=== PATIENT | male | born 1945 | race Caucasian/White ===

== ENCOUNTER 2017-07-11 09:54 | Inpatient (IN) | payer OTHER ==
[2017-07-11 10:34] LABS: AGAP ISTAT 18 mmol/L (6-14); BUN ISTAT 8 mg/dL (8-26); CHLORIDE ISTAT 104 mmol/L (98-110); CREATININE ISTAT 0.7 mg/dL (0.5-1.4); GLUCOSE ISTAT 124 mg/dL (70-99); HEMATOCRIT ISTAT 46 % (37-52); HEMOGLOBIN ISTAT 15.6 g/dL (14-18); POTASSIUM ISTAT 3.9 mmol/L (3.5-5.0); SODIUM ISTAT 140 mmol/L (135-145); TOT CO2 ISTAT 23 mmol/L (23-32)
[2017-07-11 10:36] LABS: ADD MAN DIFF? NO
[2017-07-11] MEDS: IV NORMAL SALINE 1000ML BAG 1,000 ML IV (10:41)
[2017-07-11] MEDS: fentaNYL PF VIAL 100 MCG/2 ML VIAL IV ×6 (10:42→16:51)
[2017-07-11 10:43] LABS: ANION GAP 10 (6-14); BASO % 0 % (0-3); BLOOD UREA NITROGEN 9 mg/dL (8-26); BUN/CREATININE RATIO 10 (6-20); CALCIUM 9.3 mg/dL (8.5-10.1); CARBON DIOXIDE 27 mmol/L (21-32); CHLORIDE 104 mmol/L (98-107); CREATININE 0.9 mg/dL (0.7-1.3); EOS # 0.1 x10^3/uL (0.0-0.7); EOS % 1 % (0-3); GFR 83.4; GLUCOSE 125 mg/dL (70-99); HEMATOCRIT 43.8 % (39.0-53.0); HEMOGLOBIN 14.9 g/dL (13.0-17.5); LYMPH # 1.8 x10^3/uL (1.0-4.8); LYMPH % 16 % (24-48); MEAN CORPUSCULAR HEMOGLOBIN 33 pg (25-35); MEAN CORPUSCULAR HGB CONC 34 g/dL (31-37); MEAN CORPUSCULAR VOLUME 98 fL (79-100); MONO % 9 % (0-9); NEUT # 7.9 x10^3uL (1.8-7.7); NEUT % 73 % (31-73); PLATELET COUNT 232 x10^3/uL (140-400); POTASSIUM 3.9 mmol/L (3.5-5.1); RED BLOOD COUNT 4.48 x10^6/uL (4.30-5.70); RED CELL DISTRIBUTION WIDTH 13.5 % (11.5-14.5); SODIUM 141 mmol/L (136-145); WHITE BLOOD COUNT 10.9 x10^3/uL (4.0-11.0)
[2017-07-11 10:49] LABS: ALBUMIN 3.5 g/dL (3.4-5.0); ALBUMIN/GLOBULIN RATIO 0.9 (1.0-1.7); ALK PHOS 60 U/L (46-116); ALT (SGPT) 33 U/L (16-63); AST (SGOT) 21 U/L (15-37); LIPASE 136 U/L (73-393); MAGNESIUM 1.7 mg/dL (1.8-2.4); TOTAL PROTEIN 7.6 g/dL (6.4-8.2)
[2017-07-11] MEDS ORDERED: CONTRAST GIVEN MC (11:15)
[2017-07-11] MEDS: IOHEXOL 300 MG/ML 100ML VIAL. IV (11:15)
[2017-07-11 11:20] LABS: BILIRUBIN,URINE NEGATIVE (NEG); CLARITY,URINE CLEAR; COLOR,URINE YELLOW; GLUCOSE,URINE NEGATIVE (NEG); NITRITE,URINE NEGATIVE (NEG); PROTEIN,URINE NEGATIVE (NEG-TRACE); UROBILINOGEN,URINE 0.2 mg/dL (0.2 mg/dL)
[2017-07-11 11:56] LABS: BACTERIA,URINE 0 /HPF (0-FEW); HYALINE CASTS, URINE OCCASIONAL /HPF; RBC,URINE 0 /HPF (0-2); SQUAMOUS EPITHELIAL CELL,UR FEW /LPF; WBC,URINE 0 /HPF (0-4)
[2017-07-11] MEDS ORDERED: MORPHINE SULFATE 4 MG/ML DISP.SYRIN. IV (12:00)
[2017-07-11] MEDS ORDERED: ONDANSETRON PF 4 MG/2 ML VIAL. IV (12:00)
[2017-07-11] MEDS ORDERED: PROCHLORPERAZINE 10 MG/2 ML VIAL. IV (12:45)
[2017-07-11] MEDS ORDERED: fentaNYL PF VIAL 100 MCG/2 ML VIAL IV (12:45)
[2017-07-11] MEDS ORDERED: LIDOCAINE 1% PF 2 ML VIAL. ID (12:45)
[2017-07-11] MEDS: IV RINGERS,LACTATED 1000ML 1,000 ML IV ×2 (15:00→20:02)
[2017-07-11] MEDS ORDERED: levoFLOXacin 500mg PREMIX 500 MG/100 ML BAG IV (15:00)
[2017-07-11] MEDS ORDERED: fentaNYL PF VIAL 100 MCG/2 ML VIAL ×2 (15:02→15:53)
[2017-07-11] MEDS ORDERED: LIDOCAINE 2% PF Vial for OR 5 ML VIAL. ×2 (15:53→16:31)
[2017-07-11] MEDS ORDERED: ONDANSETRON PF 4 MG/2 ML VIAL. ×2 (15:53→16:31)
[2017-07-11] MEDS ORDERED: DEXAMETHASONE SOD PHOS 20 MG/5 ML VIAL. ×2 (15:53→16:31)
[2017-07-11] MEDS ORDERED: PROPOFOL 0 ML IV (15:53)
[2017-07-11] MEDS ORDERED: ROCURONIUM 50 MG/5 ML VIAL. ×2 (15:53→16:31)
[2017-07-11] MEDS ORDERED: SUCCINYLCHOLINE 200 MG/10 ML VIAL. ×2 (16:02→16:30)
[2017-07-11] MEDS ORDERED: ROCURONIUM 100 MG/10 ML VIAL. (16:15)
[2017-07-11] MEDS ORDERED: SEVOFLURANE 61 TO 120 MINUTES. IH (16:29)
[2017-07-11] MEDS ORDERED: NEOSTIGMINE 10 MG/10 ML VIAL. (16:31)
[2017-07-11] MEDS ORDERED: MIDAZOLAM HCL/PF 2 MG/2 ML VIAL. (16:31)
[2017-07-11] MEDS ORDERED: fentaNYL PF VIAL 250 MCG/5 ML VIAL (16:31)
[2017-07-11] MEDS ORDERED: PROPOFOL 20 ML IV (16:31)
[2017-07-11] MEDS ORDERED: GLYCOPYRROLATE 1 MG/5 ML VIAL. (17:47)
[2017-07-11] MEDS: BUPIVAC MPF-EPI 0.5%-1:200000 30 ML VIAL. INJ (18:07)
[2017-07-11] MEDS ORDERED: 0.9 % SODIUM CHLORIDE 10 ML DISP.SYRIN. IV (18:45)
[2017-07-11] MEDS ORDERED: MORPHINE SULFATE 2 MG/ML DISP.SYRIN. IV (18:45)
[2017-07-11] MEDS: ALBUTEROL SULFATE 2.5 MG/3 ML NEBU. NEB (20:05)
[2017-07-11] MEDS: DOCUSATE SODIUM 100 MG CAPSULE. PO (21:00)
[2017-07-11] MEDS ORDERED: ALBUTEROL SULFATE 2.5 MG/3 ML NEBU. NEB (21:15)
[2017-07-11 21:35] LABS: BASE EXCESS ABG -1 mmol/L (-3-3); HCO3 ABG 27 mmol/L (21-28); PO2 ABG 60 mmHg (65-108); SAT O2 ABG 90 % (92-99)
[2017-07-11 21:38] LABS: FIO2 ABG 36; PCO2 ABG 53 mmHg (35-46); PH ABG 7.32 (7.35-7.45)
[2017-07-11 22:09] LABS: BASE EXCESS ABG -1 mmol/L (-3-3); HCO3 ABG 25 mmol/L (21-28); PCO2 ABG 47 mmHg (35-46); PH ABG 7.34 (7.35-7.45); PO2 ABG 66 mmHg (65-108); SAT O2 ABG 93 % (92-99)
[2017-07-11] MEDS: KETOROLAC 15 MG/ML VIAL. IV (22:57)
[2017-07-11] MEDS: HYDROcodone/APAP 5/325MG 1 TAB TABLET PO (22:58)
[2017-07-12 04:29] LABS: BASO % 0 % (0-3); EOS % 0 % (0-3); HEMATOCRIT 38.7 % (39.0-53.0); HEMOGLOBIN 13.1 g/dL (13.0-17.5); LYMPH # 0.5 x10^3/uL (1.0-4.8); LYMPH % 6 % (24-48); MEAN CORPUSCULAR HEMOGLOBIN 34 pg (25-35); MEAN CORPUSCULAR HGB CONC 34 g/dL (31-37); MEAN CORPUSCULAR VOLUME 100 fL (79-100); MONO # 0.2 x10^3/uL (0.0-1.1); MONO % 3 % (0-9); NEUT # 6.7 x10^3uL (1.8-7.7); NEUT % 91 % (31-73); PLATELET COUNT 194 x10^3/uL (140-400); RED BLOOD COUNT 3.88 x10^6/uL (4.30-5.70); RED CELL DISTRIBUTION WIDTH 13.3 % (11.5-14.5); WHITE BLOOD COUNT 7.4 x10^3/uL (4.0-11.0)
[2017-07-12 04:33] LABS: ADD MAN DIFF? YES
[2017-07-12 04:39] LABS: ANION GAP 8 (6-14); BLOOD UREA NITROGEN 9 mg/dL (8-26); CALCIUM 8.8 mg/dL (8.5-10.1); CARBON DIOXIDE 27 mmol/L (21-32); CHLORIDE 103 mmol/L (98-107); CREATININE 0.8 mg/dL (0.7-1.3); GFR 95.6; GLUCOSE 165 mg/dL (70-99); MAGNESIUM 1.7 mg/dL (1.8-2.4); POTASSIUM 4.4 mmol/L (3.5-5.1); SODIUM 138 mmol/L (136-145)
[2017-07-12] MEDS: IV RINGERS,LACTATED 1000ML 1,000 ML IV (04:42)
[2017-07-12] MEDS: IPRATRPIUM/ALBUTEROL 0.5/2.5MG 3 ML NEBU. NEB ×2 (07:55→11:13)
[2017-07-12 08:13] LABS: % BANDS 3 % (0-9); % LYMPHS 7 % (24-48); % MONOS 2 % (0-10); % SEGS 88 % (35-66); PLT ESTIMATE ADEQUATE (ADEQUATE)
[2017-07-12] MEDS: ENOXAPARIN 40 MG/0.4 ML SYRINGE. SQ (09:00)
[2017-07-12] MEDS: DOCUSATE SODIUM 100 MG CAPSULE. PO (09:51)
[2017-07-12] MEDS: HYDROcodone/APAP 5/325MG 1 TAB TABLET PO (13:16)
[2017-07-12] MEDS: KETOROLAC 15 MG/ML VIAL. IV (13:18)
[2017-07-12] MEDS: MAGNESIUM SULFATE 2GM 50 ML IV (13:32)
[2017-07-12] MEDS: LOSARTAN POTASSIUM 25 MG TABLET. PO (13:36)
[2017-07-12] MEDS: amLODIPine BESYLATE 5 MG TABLET PO (13:36)
[2017-07-12] MEDS: ALLOPURINOL 300 MG TABLET. PO (13:37)
[2017-07-12] MEDS ORDERED: CHOLECALCIFEROL (VITAMIN D3) 1,000 UNIT TABLET PO (21:00)
[2017-07-12] MEDS ORDERED: OMEGA-3 FATTY ACIDS/FISH OIL 1,000 MG CAPSULE. PO (21:00)
[2017-07-12] MEDS ORDERED: ATORVASTATIN CALCIUM 40 MG TABLET. PO (21:00)
== END 2017-07-12 14:15 | disposition home or self-care (01) | DRG 853 ==
LOC: ER 09:54 → ED HOLD 11:56 → 4 NORTH 14:49
PROC: 0DTJ4ZZ Resection of Appendix, Percutaneous Endoscopic Approach (ICD-10-PCS; principal; 2017-07-11 16:00)
DX: A41.9 Sepsis, unspecified organism (principal); J96.00 Acute respiratory failure, unspecified whether with hypoxia or hypercapnia; Q43.8 Other specified congenital malformations of intestine; E83.42 Hypomagnesemia; E66.01 Morbid (severe) obesity due to excess calories; J44.9 Chronic obstructive pulmonary disease, unspecified; K35.80 Unspecified acute appendicitis; E78.5 Hyperlipidemia, unspecified; I10 Essential (primary) hypertension; M10.9 Gout, unspecified; Z88.0 Allergy status to penicillin; Z88.5 Allergy status to narcotic agent; Z87.891 Personal history of nicotine dependence; Z68.30 Body mass index [BMI] 30.0-30.9, adult; Z79.82 Long term (current) use of aspirin; Z79.899 Other long term (current) drug therapy
CPT/HCPCS: 36415; 36600; 71045; 74177; 80047; 80048; 80053; 81001; 82805; 83690; 83735; 85007; 85025; 88304; 93005; 94640; 94760; 96361; 96365; 96375; 96376; 99285; 99285-25; J0330; J0694; J1100; J1885; J1956; J2250; J2405; J2704; J2710; J3010; J3475; J3490; J7030; J7120; J7613; J7620; Q9967